=== PATIENT | female | born 2000 | race Caucasian/White ===

== ENCOUNTER 2018-08-12 13:54 | Outpatient (CLI) | payer OTHER | END 2018-08-12 23:59 | disposition home or self-care (01) | LOC: CFH 13:54 | DX: N63.21 Unspecified lump in the left breast, upper outer quadrant (principal) ==

== ENCOUNTER 2018-11-17 07:54 | Outpatient (CLI) | payer OTHER | END 2018-11-17 23:59 | disposition home or self-care (01) | LOC: STAR 07:54 | PROVIDERS: ATTEND Surgery | DX: Z02.9 Encounter for administrative examinations, unspecified (principal) ==

== ENCOUNTER 2018-11-22 05:30 | Day surgery (SDC) | payer OTHER ==
[~2018-11-22] VITALS: Ht 170.2 cm; Wt 52.1 kg
[~2018-11-22 05:30] MED LIST: CALC1CAP8 PO; MAGN400T7 PO; MULT1TAB60 PO
[2018-11-22] MEDS ORDERED: LACTATED RINGERS 1,000 ML IV SCH (06:37)
[2018-11-22 06:40] VITALS: BP 103/69
[2018-11-22] MEDS ORDERED: BUPIVACAINE/PF-EPI 0.5% 1:200K ONE (06:44)
[2018-11-22 06:46] LABS: HCG UR SG 1.007 (1.003-1.030)
[2018-11-22] MEDS ORDERED: FENTANYL PF 100 MCG/2ML ONE (07:02)
[2018-11-22] MEDS ORDERED: MIDAZOLAM 1 MG/ML, 2ML ONE (07:02)
[2018-11-22] MEDS ORDERED: ACETAMINOPHEN 325 MG TABLET PO PRN (07:30)
[2018-11-22] MEDS ORDERED: MIDAZOLAM 1 MG/ML, 2ML IV PRN (07:30)
[2018-11-22] MEDS ORDERED: ONDANSETRON ODT 8 MG PO PRN (07:30)
[2018-11-22] MEDS ORDERED: ONDANSETRON 2MG/ML, 2ML IV PRN (07:30)
[2018-11-22] MEDS ORDERED: HYDROmorphone 2 MG/ML, 1ML IVPush PRN (07:30)
[2018-11-22] MEDS ORDERED: FENTANYL PF 100 MCG/2ML IV PRN (07:30)
[2018-11-22] MEDS ORDERED: MEPERIDINE/PF 25MG/0.5ML IVPush PRN (07:30)
[2018-11-22] MEDS ORDERED: OXYcodone 5 MG/5 ML ORAL.SOL UDC PO PRN (07:30)
[2018-11-22] MEDS ORDERED: EPHEDRINE 50 MG/ML, 1ML IM PRN (07:30)
[2018-11-22] MEDS ORDERED: PROMETHAZINE 25 MG/ML, 1ML IV PRN (07:30)
[2018-11-22] MEDS ORDERED: DIPHENHYDRAMINE 50 MG/ML, 1ML IVPush PRN (07:30)
[2018-11-22] MEDS ORDERED: DIAZEPAM 5 MG/ML, 2ML IVPush PRN (07:30)
[2018-11-22] MEDS ORDERED: DEXAMETHASONE 4 MG/ML, 1ML ONE (07:34)
[2018-11-22] MEDS ORDERED: PROPOFOL 10 MG/ML, 20ML ONE (07:34)
[2018-11-22] MEDS ORDERED: ONDANSETRON 2MG/ML, 2ML ONE (07:34)
[2018-11-22] MEDS ORDERED: KETOROLAC 30 MG/1 ML ONE (07:35)
[2018-11-22] MEDS ORDERED: ACETAMINOPHEN 650 MG/20.3 ML UDC ONE (08:54)
[2018-11-22] MEDS ORDERED: OXYcodone 5 MG/5 ML ORAL.SOL UDC ONE (08:54)
== END 2018-11-22 10:40 | disposition home or self-care (01) ==
LOC: OR 05:30 → OUT 10:40
PROVIDERS: ATTEND Surgery
DX: D24.2 Benign neoplasm of left breast (principal); Z72.89 Other problems related to lifestyle
CPT/HCPCS: 19120; 81025; 88307; J1100; J1885; J2250; J2405; J2704; J3010; J7120